=== PATIENT | female | born 1970 | race Caucasian/White ===

== ENCOUNTER 2024-07-04 17:53 | Emergency (ER) | payer SELFPAY ==
[2024-07-04 18:06] VITALS: BP 142/74; PULSE 66; RESP 20; TEMP 98.6
[2024-07-04] MEDS ORDERED: ACETAMINOPHEN 325 MG TABLET (FP) ONE (19:52)
[2024-07-04] MEDS ORDERED: METHOCARBAMOL 500 MG TABLET ONE (19:52)
[2024-07-04] MEDS ORDERED: LIDOCAINE 4% PATCH TP ONE (19:52)
[2024-07-04] MEDS ORDERED: KETOROLAC TROMETHAMINE 15 MG/ML VIAL ONE (19:52)
[2024-07-04] MEDS: METHOCARBAMOL 750 MG TAB PO ONE (20:03)
[2024-07-04] MEDS: ACETAMINOPHEN 500 MG TABLET (FP) PO ONE (20:04)
[2024-07-04] MEDS: KETOROLAC TROMETHAMINE 15 MG/ML VIAL IM ONE (20:04)
[2024-07-04] MEDS: LIDOCAINE 5% TOPICAL PATCH TP ONE (20:04)
[2024-07-04] MEDS ORDERED: DEXAMETHASONE SOD PHOSPHATE 10 MG/1 ML VIAL ONE (20:54)
[2024-07-04] MEDS ORDERED: oxyCODONE HCL 5 MG TABLET ONE (20:54)
[2024-07-04] MEDS: DEXAMETHASONE SOD PHOSPHATE 10 MG/1 ML VIAL IM ONE (21:04)
[2024-07-04] MEDS: oxyCODONE HCL 5 MG TABLET PO ONE (21:04)
[2024-07-04 21:53] LABS: BASO % 0.5 % (0-2.0); EOS % 0.9 % (0-4.5); HEMATOCRIT 38.2 % (32.4-45.2); HEMOGLOBIN 12.8 GM/dL (10.7-15.3); LYMPH % 27.9 % (8-40); MCH 29.4 pg (25.7-33.7); MCHC 33.6 g/dl (32.0-36.0); MEAN CELL VOLUME 87.3 fl (80-96); MONO % 6.5 % (3.8-10.2); NEUT % 64.2 % (42.8-82.8); PLATELET COUNT 292 10^3/uL (134-434); RBC 4.37 M/mm3 (3.60-5.2); RDW 14.3 % (11.6-15.6); WHITE BLOOD COUNT 8.7 K/mm3 (4.0-10.0)
[2024-07-04 22:18] LABS: CHLORIDE 109 mmol/L (98-107); POTASSIUM 4.1 mmol/L (3.5-5.1); SODIUM 141 mmol/L (136-145)
[2024-07-04 22:21] LABS: ALBUMIN 3.5 g/dl (3.4-5.0); ANION GAP 7 mmol/L (4-13); BLOOD UREA NITROGEN 7.9 mg/dL (7-18); CO2 25 mmol/L (21-32)
[2024-07-04 22:24] LABS: CREATININE 0.9 mg/dL (0.55-1.3); GLUCOSE,RANDOM 122 mg/dL (74-106); SGOT/AST 13 U/L (15-37); SGPT/ALT 17 U/L (13-61)
[2024-07-04 22:25] LABS: BILIRUBIN,TOTAL 0.5 mg/dL (0.2-1); TOT PROT 6.6 g/dl (6.4-8.2)
[2024-07-04 22:26] LABS: ALK PHOS 57 U/L (45-117)
[2024-07-04 23:09] LABS: ERYTHROCYTE SEDIMENTATION RATE 12 mm/hr (0-30)
[2024-07-05] MEDS ORDERED: LIDOCAINE PATCH REMOVAL MC SCH (08:00)
== END 2024-07-04 23:11 | disposition home or self-care (01) ==
LOC: JERFT 17:53
PROC: 3E0233Z Introduction of Anti-inflammatory into Muscle, Percutaneous Approach (ICD-10-PCS; principal; 2024-07-04)
PROC: 3E02329 Introduction of Other Anti-infective into Muscle, Percutaneous Approach (ICD-10-PCS; 2024-07-04)
DX: M54.42 Lumbago with sciatica, left side (principal)
CPT/HCPCS: 36415; 80053; 85025; 85651; 86140; 93005; 93010; 99284-25; J1100